=== PATIENT | male | born 1965 | race American Indian/Alaskan Native ===

== ENCOUNTER 2017-01-12 16:09 | Emergency (ER) | payer OTHER ==
[2017-01-12] MEDS ORDERED: XYLOCAINE 2% INFILTRATI ONE ×2 (16:20→16:22)
[2017-01-12] MEDS ORDERED: MARCAINE 0.5% INFILTRATI ONE ×2 (16:20→16:22)
[2017-01-12] MEDS ORDERED: BOOSTRIX IM ONE ×2 (16:25→19:30)
--- NOTE | 2017-01-12 16:59 | XRay Report ---
LEFT FINGER RADIOGRAPHS INDICATION: Crush injury to finger. COMPARISON: None similar at this institution. FINDINGS: AP view of the left hand with oblique and lateral projections of the index finger demonstrate severely comminuted fractures involving the distal phalanx of the second digit with extension to the PIP joint. Overlying soft tissue injury also noted. Normal remainder exam. CONCLUSION: Severely comminuted acute fractures of the left index finger distal phalanx with overlying soft tissue injury, as described, though still appears closed. Please correlate clinically. Thank you for the opportunity to participate in this patient's care.
--- NOTE | 2017-01-12 19:34 | Emergency Department Report ---
ED General Adult HPI - General Chief complaint: Wound/Laceration Stated complaint: LEFT FINGER AMPUTATION Time Seen by Provider: 01/12/17 16:24 Source: patient Mode of arrival: Ambulatory Limitations: No Limitations - History of Present Illness Initial comments: Patient essentially suffered a crush injury to his finger at work. He works as an auto damage appraiser. He states a heavy piece of his metal fell onto his distal left index finger. He states he feels sensation at the tip of his finger. Obviously is quite painful. When he arrived he received a digital block and did have intact sensation. -: Sudden Location: left, upper extremity Radiation: non-radiation Quality: aching Consistency: constant Improves with: none Worsens with: none Associated Symptoms: denies other symptoms Treatments Prior to Arrival: none - Related Data Previous Rx's Medication Instructions Recorded Last Taken Type Cephalexin [Keflex] 500 mg PO Q6HR #30 capsule 01/12/17 Unknown Rx HYDROcodone/APAP 7.5-325 [Bishop 1 each PO Q6HR PRN #20 tablet 01/12/17 Unknown Rx 7.5/325] Allergies Allergy/AdvReac Type Severity Reaction Status Date / Time No Known Allergies Allergy Unverified 01/12/17 16:11 ED Review of Systems ROS: Stated complaint: LEFT FINGER AMPUTATION Other details as noted in HPI Comment: All other systems reviewed and negative ED Past Medical Hx - Past Medical History Previous Medical History?: No - Surgical History Past Surgical History?: No - Social History Smoking Status: Never Smoker Substance Use Type: None - Medications Home Medications: Home Medications Medication Instructions Recorded Confirmed Last Taken Type Cephalexin [Keflex] 500 mg PO Q6HR #30 capsule 01/12/17 Unknown Rx HYDROcodone/APAP 7.5-325 [Bishop 1 each PO Q6HR PRN #20 tablet 01/12/17 Unknown Rx 7.5/325] ED Physical Exam - General Limitations: No Limitations General appearance: alert, in no apparent distress - Head Head exam: Present: atraumatic, normocephalic - Eye Eye exam: Present: normal appearance - ENT ENT exam: Present: mucous membranes moist - Neck Neck exam: Present: normal inspection - Respiratory Respiratory exam: Present: normal lung sounds bilaterally. Absent: respiratory distress - Cardiovascular Cardiovascular Exam: Present: regular rate, normal rhythm. Absent: systolic murmur, diastolic murmur, rubs, gallop - GI/Abdominal GI/Abdominal exam: Present: soft, normal bowel sounds. Absent: distended, tenderness, guarding, rebound - Rectal Rectal exam: Present: deferred - Extremities Exam Extremities exam: Present: other (patient does have an apparent crush injury of his terminal phalanx of his left index finger. On the radial side he has a less than 1 cm laceration. There is significant swelling. There also appears to be punctures of the middle phalanx and the terminal phalanx on the ulnar side. He did have distal swelling. However the finger does look viable.) - Back Exam Back exam: Present: normal inspection - Neurological Exam Neurological exam: Present: alert, oriented X3, CN II-XII intact. Absent: motor sensory deficit - Psychiatric Psychiatric exam: Present: normal affect, normal mood - Skin Skin exam: Present: warm, dry, intact, normal color. Absent: rash ED Course Vital Signs 01/12/17 01/12/17 01/12/17 16:11 16:19 16:20 Temperature 97.7 F Pulse Rate 110 H Respiratory 28 H 28 H Rate Blood Pressure 124/77 O2 Sat by Pulse 100 100 96 Oximetry 01/12/17 01/12/17 17:00 18:00 Temperature Pulse Rate Respiratory Rate Blood Pressure 111/54 119/63 O2 Sat by Pulse 95 94 Oximetry - Reevaluation(s) Reevaluation #1: Initial block was performed. Tetanus toxoid and IV Ancef. Spoke to Dr. Lopez , the orthopedist concerning this injury and texted the image. We agreed that the laceration is best left open in this case. The patient will be seen in the orthopedist's office on Tuesday morning. He will be dressed and splinted. 01/12/17 19:32 01/12/17 19:36 ED Medical Decision Making - Radiology Data interpreted by me: Comminuted intra-articular fracture of the left terminal phalanx index finger. Critical care attestation.: If time is entered above; I have spent that time in minutes in the direct care of this critically ill patient, excluding procedure time. ED Disposition Clinical Impression: Open fracture Crush injury to finger Qualifiers: Encounter type: initial encounter Qualified Code(s): S67.10XA - Crushing injury of unspecified finger(s), initial encounter Disposition: - TO HOME OR SELFCARE Is pt being admited?: No Does the pt Need Aspirin: No Condition: Stable Instructions: Finger Fracture (ED), Contusion in Adults (ED) Additional Instructions: Follow-up with orthopedic physician. See referral. Elevate hand all day tomorrow. Rx as directed. Return any acute problem as necessary here tomorrow. Prescriptions: Cephalexin [Keflex] 500 mg PO Q6HR #30 capsule HYDROcodone/APAP 7.5-325 [Bishop 7.5/325] 1 each PO Q6HR PRN #20 tablet PRN Reason: Pain Referrals: PRIMARY CAREMD [Primary Care Provider] - 3-5 Days MITALI LOPEZ MD [Staff Physician] - 3-5 Days Time of Disposition: 19:34
[2017-01-12 20:02] VITALS: BP 113/60
== END 2017-01-12 20:04 | disposition home or self-care (01) ==
LOC: ED 16:09
DX: S62.601B Fracture of unspecified phalanx of left index finger, initial encounter for open fracture (principal); S67.10XA Crushing injury of unspecified finger(s), initial encounter; W22.8XXA Striking against or struck by other objects, initial encounter; Y93.89 Activity, other specified; Y92.89 Other specified places as the place of occurrence of the external cause; Y99.8 Other external cause status
CPT/HCPCS: 90471; 90715